=== PATIENT | female | born 1945 | race Caucasian/White ===

== ENCOUNTER 2017-04-20 08:36 | Inpatient (IN) | payer OTHER ==
[~2017-04-20] VITALS: Ht 170.2 cm; Wt 73.5 kg
[2017-04-20 10:05] LABS: BASOPHIL % 0.4 % (0-2); PLATELET COUNT 224 x10^3mcL (130-400); RED CELL DISTRIBUTION WIDTH 12.4 % (11.5-14.5)
[2017-04-20 10:15] LABS: ALBUMIN 4.1 g/dL (3.4-5.0); BILIRUBIN TOTAL 0.93 mg/dL (0.20-1.00); CALCIUM 9.3 mg/dL (8.5-10.1); CARBON DIOXIDE 24.9 mmol/L (21-32); POTASSIUM SERUM 3.9 mmol/L (3.5-5.1); TOTAL PROTEIN, SERUM 8.2 g/dL (6.4-8.2)
[2017-04-20 10:24] LABS: FREE T4 1.11 ng/dL (0.76-1.46); T4(THYROXINE) 8.9 ug/dL (4.7-13.3)
[2017-04-20 10:40] LABS: CHOLESTEROL/HDL RATIO 2.9
[2017-04-20 10:55] LABS: microscopic required? YES; urine erythrocyte 3+ (NEGATIVE)
[2017-04-20] MEDS ORDERED: ZOFRAN ODT8 MG PO (12:05)
[2017-04-20] MEDS ORDERED: LEVOTHYROXINE0.05 M2 PO (12:06)
[2017-04-20] MEDS ORDERED: MONTELUKAST SOD10 M1 PO (12:07)
[2017-04-20] MEDS ORDERED: HYZAAR1 TA2 PO (12:07)
[2017-04-20] MEDS ORDERED: SIMVASTATIN10 M1 PO (12:08)
[2017-04-20] MEDS ORDERED: BACLOFEN10 MG PO (12:10)
[2017-04-20] MEDS ORDERED: TRAMADOL HCL50 MG PO (12:11)
[2017-04-20] MEDS ORDERED: XANAX0.5 MG PO (12:12)
[2017-04-20] MEDS ORDERED: DICLOFENAC SODI50 MG PO (12:14)
[2017-04-20] MEDS ORDERED: FLUOXETINE HCL20 M2 PO (12:37)
[2017-04-20 13:16] LABS: T3 TOTAL 0.73 ng/mL
[2017-04-20 14:13] VITALS: BP 165/89
[2017-04-20 14:18] VITALS: Ht 170.2 cm; Wt 73.5 kg
[2017-04-20 15:01] LABS: MAGNESIUM 1.8 mg/dL (1.8-2.4); PHOSPHOROUS 3.3 mg/dL (2.5-4.9)
[2017-04-20 16:14] LABS: CALCIUM 9.2 mg/dL (8.5-10.1); CARBON DIOXIDE 24.5 mmol/L (21-32); CHLORIDE SERUM 84 mmol/L (98-107); CREATININE SERUM 0.9 mg/dL (0.6-1.0); GFR1 > 60 mL/min; GLUCOSE SERUM 122 mg/dL (74-106); POTASSIUM SERUM 3.6 mmol/L (3.5-5.1)
[2017-04-20 16:16] LABS: SODIUM SERUM 120 mmol/L (136-145)
[2017-04-20 18:13] VITALS: BP 164/87
[2017-04-20 21:45] VITALS: BP 174/86
[2017-04-20 22:04] LABS: CALCIUM 8.7 mg/dL (8.5-10.1); CARBON DIOXIDE 23.6 mmol/L (21-32); CHLORIDE SERUM 86 mmol/L (98-107); CREATININE SERUM 0.8 mg/dL (0.6-1.0); GFR1 > 60 mL/min; GLUCOSE SERUM 113 mg/dL (74-106); POTASSIUM SERUM 3.1 mmol/L (3.5-5.1)
[2017-04-20 22:06] LABS: SODIUM SERUM 120 mmol/L (136-145)
[2017-04-21] VITALS (7 sets, daily range): BP systolic 133–187; BP diastolic 73–109
[2017-04-21 06:26] LABS: CARBON DIOXIDE 25.4 mmol/L (21-32); CHLORIDE SERUM 89 mmol/L (98-107); CREATININE SERUM 0.9 mg/dL (0.6-1.0); GFR1 > 60 mL/min; GLUCOSE SERUM 102 mg/dL (74-106); MAGNESIUM 1.8 mg/dL (1.8-2.4); PHOSPHOROUS 2.3 mg/dL (2.5-4.9); POTASSIUM SERUM 3.4 mmol/L (3.5-5.1); SODIUM SERUM 125 mmol/L (136-145); URIC ACID 1.6 mg/dL (2.6-6.0)
[2017-04-21 06:51] LABS: BASOPHIL % 0.3 % (0-2); PLATELET COUNT 231 x10^3mcL (130-400); RED CELL DISTRIBUTION WIDTH 12.5 % (11.5-14.5)
[2017-04-21] MEDS ORDERED: NOR10 PO (18:01)
[2017-04-21] MEDS ORDERED: PRI20 PO (18:02)
[2017-04-21] MEDS ORDERED: CAR1 PO (18:02)
[2017-04-21] MEDS ORDERED: DEC4I IV (18:04)
[2017-04-21] MEDS ORDERED: COZ50 PO (18:05)
[2017-04-21] MEDS ORDERED: SOD1 PO (18:22)
== END 2017-04-21 20:20 | disposition short-term general hospital (02) | DRG 640 ==
LOC: ED 08:36 → DU 12:33
PROVIDERS: Specialist; ADMIT Student in an Organized Health Care Education/Training Program
DX: E87.1 Hypo-osmolality and hyponatremia (principal); N17.0 Acute kidney failure with tubular necrosis; E22.2 Syndrome of inappropriate secretion of antidiuretic hormone; T50.2X5A Adverse effect of carbonic-anhydrase inhibitors, benzothiadiazides and other diuretics, initial encounter; N28.1 Cyst of kidney, acquired; M50.30 Other cervical disc degeneration, unspecified cervical region; I16.0 Hypertensive urgency; E03.9 Hypothyroidism, unspecified; E78.5 Hyperlipidemia, unspecified; Z68.25 Body mass index [BMI] 25.0-25.9, adult; Z87.891 Personal history of nicotine dependence; Y92.009 Unspecified place in unspecified non-institutional (private) residence as the place of occurrence of the external cause
CPT/HCPCS: 82962; 83880; 84439; J1100; J1885; J1940; J2270; J2405; J2765; J3490; J7030; Q0092; Q9967